=== PATIENT | female | born 1955 | race Caucasian/White ===

== ENCOUNTER 2016-09-19 06:54 | Day surgery (SDC) | payer BC ==
--- NOTE | ~2016-09-19 | EGD ---
EGD REPORT [facility] [address] [address] NAME: DEMETRIA VAZQUEZ : 51 STATUS : [place] [facility] [place] [id number] AGE: 61 ADM/REG DATE : 09/19/16 MR#: [id number] REPORT SERV DATE: 09/19/16 DICTATED BY: ANN WANG DATE: 09/19/16 REPORT STATUS : Draft TRANSCRIBED BY: [facility] DATE: 09/19/16 End[facility] Center Patient Name: Demetria Vazquez Date of : 1955 Attending MD: ANN WANG MD Procedure Date No Time: 09/19/2016 Procedure: Colonoscopy Indications: High risk colon cancer surveillance: Personal history of non-advanced adenoma last exam 2012. Patient Profile: Informed consent was obtained from the patient by me prior to the procedure. Risks, benefits, and alternatives were discussed including the risk of bleeding, perforation, infection, reaction to medicine, missed lesion, and cardiopulmonary complications. Referring MD: FLORIN GONZALEZ MD Medicines: Monitored Anesthesia Care Complications: No immediate complications. Procedure: Pre-Anesthesia Assessment: - ASA Grade Assessment: II - A patient with mild systemic disease. After I obtained informed consent, the scope was passed under direct vision. Throughout the procedure, the patient's blood pressure, pulse, and oxygen saturations were monitored continuously. The PCF [id number] was introduced through the anus and advanced to the cecum, identified by appendiceal orifice and ileocecal valve. The colonoscope was slowly withdrawn with careful examination all mucosal surfaces including specific attention around flexures and tip deflection behind folds; retroflexion performed in rectum. The colonoscopy was performed without difficulty. The patient tolerated the procedure well. The quality of the bowel preparation was adequate. The ileocecal valve, appendiceal orifice and rectum were photographed. Findings: The colon (entire examined portion) appeared normal. Impression: - The entire examined colon is normal. Recommendation: - Patient has a contact number available for emergencies. The signs and symptoms of potential delayed complications were discussed with the patient. Return to normal activities tomorrow. Written discharge instructions were provided to the patient. EGD REPORT [address] [address] NAME: DEMETRIA VAZQUEZ : [birth year] STATUS : [place] [facility] [place] PAT#: [id number] AGE: 61 ADM/REG DATE : 09/19/16 MR#: [id number] REPORT SERV DATE: 09/19/16 DICTATED BY: ANN WANG. DATE: 09/19/16 REPORT STATUS : Draft TRANSCRIBED BY: [employer] DATE: 09/19/16 - Regular diet. - Continue present medications. - Repeat colonoscopy in 5 years for surveillance. Procedure Code(s): --- Professional --- 44368, Colonoscopy, flexible, proximal to splenic flexure; diagnostic, with or without collection of specimen(s) by brushing or washing, with or without colon decompression (separate procedure) Diagnosis Code(s): --- Professional --- Z86.010, Personal history of colonic polyps CPT copyright 2013 [employer]. All rights reserved. The codes documented in this report are preliminary and upon glass processing worker review may be revised to meet current compliance requirements. ANN WANG MD 09/19/2016 9:07 AM This report has been signed electronically. Number of Addenda: 0 Note Initiated On: 09/19/2016 8:42 AM Scope Withdrawal Time 0 hours 9 minutes 41 seconds [address] [id number]
[~2016-09-19 06:54] MED LIST: PRILO PO; SYNTHROID137 MCG PO
== END 2016-09-19 23:59 | disposition home or self-care (01) ==
LOC: DMU 06:54
PROVIDERS: Internal Medicine Gastroenterology
PROC: 0DJD8ZZ Inspection of Lower Intestinal Tract, Via Natural or Artificial Opening Endoscopic (ICD-10-PCS; principal; 2016-09-19 08:45)
DX: Z12.11 Encounter for screening for malignant neoplasm of colon (principal); K21.9 Gastro-esophageal reflux disease without esophagitis; E03.9 Hypothyroidism, unspecified; M17.9 Osteoarthritis of knee, unspecified; M19.019 Primary osteoarthritis, unspecified shoulder; F41.9 Anxiety disorder, unspecified; Z98.890 Other specified postprocedural states; Z86.010 Personal history of colon polyps; Z98.51 Tubal ligation status; Z85.850 Personal history of malignant neoplasm of thyroid; Z79.899 Other long term (current) drug therapy